=== PATIENT | female | born 1960 | race Caucasian/White ===

== ENCOUNTER 2025-06-03 16:09 | Emergency (ER) | payer OTHER, SELFPAY ==
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
--- NOTE | ~2025-06-03 | CT_ITS ---
CLINICAL HISTORY: trauma CT head without contrast Comparison: None available Findings: No acute hemorrhage. No extra-axial fluid collection. No hydrocephalus, mass-effect or herniation. Osborne-white differentiation is maintained. White matter is within normal limits for age. No acute orbital pathology. No acute soft tissue abnormality. No fracture. The visualized paranasal sinuses are predominantly clear. The mastoid air cells are clear. Impression: No acute findings. This document has been electronically signed by: Aline Lebron MD on 06/03/2025 17:58:27
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
[2025-06-03 16:15] VITALS: BP 150/77; PULSE 67; RESP 18; TEMP 36.4; O2SAT 99; BMI 26.4
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
--- NOTE | 2025-06-03 16:42 | PC.NURSE ---
Pt to ED 3, CT scans and xrays pending... Pt a/o x 3 and ambulating with steady gait. Abrasions noted to left elbow x 2, band-aids applied per pt request.
[2025-06-03 18:36] VITALS: BP 162/77; PULSE 66; RESP 18; TEMP -17.7; TEMP 0; O2SAT 100
== END 2025-06-03 19:07 | disposition home or self-care (01) ==
PROVIDERS: Emergency Provider Emergency Medicine; PCP Family Medicine
DX: S09.90XA Unspecified injury of head, initial encounter (principal); T14.8XXA Other injury of unspecified body region, initial encounter; R51.9 Headache, unspecified; R07.81 Pleurodynia; F41.9 Anxiety disorder, unspecified; I10 Essential (primary) hypertension; V29.91XA Electric (assisted) bicycle rider (driver) (passenger) injured in unspecified traffic accident, initial encounter; Y93.89 Activity, other specified; Y92.9 Unspecified place or not applicable; Y99.9 Unspecified external cause status
CPT/HCPCS: 70450; 71101; 72125; 99283; 99284

== ENCOUNTER → 2025-06-03 16:17 | Outpatient (BNV) | payer OTHER, SELFPAY | PROVIDERS: Emergency Provider Emergency Medicine; PCP Family Medicine; Visit Provider Radiology Diagnostic Radiology | DX: E04.1 Nontoxic single thyroid nodule (principal); S09.90XA Unspecified injury of head, initial encounter; R07.89 Other chest pain | CPT/HCPCS: 70450; 71101; 72125 ==